=== PATIENT | male | born 1960 | race Caucasian/White ===

== ENCOUNTER 2018-09-01 07:11 | Emergency (ER) | payer OTHER ==
[2018-09-01 07:29] VITALS: BP 141/82
[2018-09-01] MEDS ORDERED: Ipratropium 0.5MG/2.5ML NEB* 0.5 MG/2.5 ML NEB.SOLN INH ONE (07:52)
[2018-09-01] MEDS ORDERED: Albuterol 2.5 MG/3 ML NEB.SOL* (0.083%) INH ONE (07:52)
[2018-09-01] MEDS ORDERED: predniSONE TAB* 20 MG PO ONE (07:52)
--- NOTE | 2018-09-01 07:57 | UC ---
Respiratory Complaint HPI - HPI Summary HPI Summary: 58 yo male presents with acute exacerbation of his COPD x 3 days no fever has had to increase his frequency of nebs no CP increased dysnea - History of Current Complaint Chief Complaint: UCRespiratory Stated Complaint: SHORTNESS OF BREATH (HX ASTHMA AND COPD) Time Seen by Provider: 09/01/18 07:48 Hx Obtained From: Patient Onset/Duration: Gradual Onset, Lasting Hours, Lasting Days Severity Initially: Mild Severity Currently: Moderate Pain Intensity: 0 Pain Scale Used: 0-10 Numeric Character: Cough: Nonproductive Aggravating Factors: Exertion, Deep Breaths Alleviating Factors: Bronchodilator - somne relief Associated Signs And Symptoms: Positive: Dyspnea, Wheezing. Negative: Fever, Chills, Pleuritic Chest Pain, Hemoptysis, Dizziness, Calf Pain, Calf Swelling, Edema, URI, Nasal Congestion, Hoarseness, Sinus Discomfort - Allergies/Home Medications Allergies/Adverse Reactions: Allergies Allergy/AdvReac Type Severity Reaction Status Date / Time No Known Allergies Allergy Verified 09/01/18 07:24 Home Medications: Home Medications Azithromycin TAB* [Zithromax TAB (Z-GABRIEL) 250 mg #6 tabs] 250 mg PO DAILY [History Confirmed 09/01/18] Tiotropium CAP.INH* [Spiriva CAP.INH*] 1 cap.inh INH DAILY 09/01/18 [History Confirmed 09/01/18] PMH/Surg Hx/FS Hx/Imm Hx Previously Healthy: Yes Respiratory History: COPD, Asthma - Surgical History Surgical History: None - Family History Known Family History: Positive: Hypertension Negative: Diabetes, Respiratory Disease - Social History Alcohol Use: None Alcohol Amount: none in 10 years Substance Use Type: None Smoking Status (MU): Former Smoker Type: Cigarettes Length of Time of Smoking/Using Tobacco: 1 PPD x 32 Years When Did the Patient Quit Smoking/Using Tobacco: 2010 - Immunization History Most Recent Influenza Vaccination: Fall 2013 Most Recent Pneumonia Vaccination: 2010 ? Review of Systems All Other Systems Reviewed And Are Negative: Yes Constitutional: Positive: Fatigue Skin: Positive: Negative Eyes: Positive: Negative ENT: Positive: Negative Respiratory: Positive: Shortness Of Breath, Cough Cardiovascular: Positive: Negative Gastrointestinal: Positive: Negative Genitourinary: Positive: Negative Motor: Positive: Negative Neurovascular: Positive: Negative Musculoskeletal: Positive: Negative Neurological: Positive: Negative Psychological: Positive: Negative Physical Exam Triage Information Reviewed: Yes Appearance: Well-Appearing, No Pain Distress, Well-Nourished Vital Signs: Initial Vital Signs Temp 98.5 F 09/01/18 07:22 Pulse 104 09/01/18 07:22 Resp 24 09/01/18 07:22 BP 141/82 09/01/18 07:22 Pulse Ox 95 09/01/18 07:22 Vital Signs Reviewed: Yes Eyes: Positive: Conjunctiva Clear ENT: Positive: Hearing grossly normal, Pharyngeal erythema, Uvula midline. Negative: Nasal congestion, Nasal drainage, Tonsillar swelling, Tonsillar exudate, Trismus, Muffled voice, Hoarse voice, Sinus tenderness Dental: Negative: Abscess @ Neck: Positive: Supple, Nontender, No Lymphadenopathy Respiratory: Positive: Accessory muscle use, Wheezing Cardiovascular: Positive: RRR, No Murmur, Tachycardia - rate 104 Musculoskeletal: Positive: No Edema Neurological: Positive: Alert Psychological Exam: Normal Skin Exam: Normal Re-Evaluation - Re-Evaluation First Eval Re-Evaluation Time: 08:25 Change: Improved - STILL WHEEZING BUT BETTER AIR MOVEMENT. NO RALES Respiratory Course/Dx - Differential Dx/Diagnosis Provider Diagnosis: Acute exacerbation of COPD with asthma Discharge - Sign-Out/Discharge Documenting (check all that apply): Patient Departure All imaging exams completed and their final reports reviewed: No Studies - Discharge Plan Condition: Stable Disposition: HOME Prescriptions: Amoxicillin PO (*) [Amoxicillin 875 MG (*)] 875 mg PO BID #14 tab predniSONE [Deltasone 20 MG TAB] 20 - 40 mg PO DAILY #15 tab Patient Education Materials: Bronchospasm (ED) Referrals: Gunner Han MD [Primary Care Provider] - As Soon As Possible Additional Instructions: return in 2 days if not improved to ER for worsening symptoms see your MD first available appt - Billing Disposition and Condition Condition: STABLE Disposition: Home
== END 2018-09-01 08:34 | disposition home or self-care (01) ==
LOC: UCCORT 07:11
DX: J44.1 Chronic obstructive pulmonary disease with (acute) exacerbation (principal); Z87.891 Personal history of nicotine dependence
CPT/HCPCS: 99212; G0463; J7512